=== PATIENT | male | born 1990 | race Native Hawaiian/Other Pacific Islander ===

== ENCOUNTER 2017-05-10 11:22 | Outpatient (CLI) | payer MEDICAID ==
--- NOTE | 2017-05-10 13:18 | XRAY Report ---
THREE-VIEW RIGHT FOOT: 05/10/2017 CLINICAL INDICATION: Joint pain. FINDINGS: AP, lateral, oblique views of the right foot demonstrate no evidence of fracture or disloc ation. The joint spaces are preserved. No radiopaque foreign body is seen in the soft tissues. IMPRESSION: NORMAL RIGHT FOOT. JOB #: [id number] EXT JOB #:[id number]
== END 2017-05-10 11:23 | disposition home or self-care (01) ==
LOC: DI.N 11:22
PROVIDERS: ATTEND Physician Assistant
DX: M79.671 Pain in right foot (principal)

== ENCOUNTER 2020-08-24 15:14 | Outpatient (CLI) | payer OTHER | END 2020-08-24 15:15 | disposition home or self-care (01) | LOC: COV 15:14 | PROVIDERS: ATTEND Family Medicine | DX: R50.9 Fever, unspecified (principal); M79.10 Myalgia, unspecified site; R53.83 Other fatigue; R07.0 Pain in throat; R19.7 Diarrhea, unspecified; R09.81 Nasal congestion; Z20.828 Contact with and (suspected) exposure to other viral communicable diseases ==

== ENCOUNTER 2020-11-29 16:23 | Outpatient (CLI) | payer OTHER | END 2020-11-29 16:24 | disposition home or self-care (01) | LOC: COV 16:23 | PROVIDERS: ATTEND Family Medicine | DX: R50.9 Fever, unspecified (principal); R05 Cough; R06.02 Shortness of breath; M79.10 Myalgia, unspecified site; R19.7 Diarrhea, unspecified; R11.2 Nausea with vomiting, unspecified; Z20.822 Contact with and (suspected) exposure to COVID-19 ==

== ENCOUNTER 2024-11-26 08:04 | Observation (INO) ==
--- NOTE | 2024-11-26 08:30 | ED Physician Documentation ---
PD HPI ABD PAIN Stated complaint Stated Complaint: RUQ PX/SWELLING,N/V Chief complaint Chief Complaint: Abd Pain History obtained from History obtained from: Patient History of Present Illness Timing - onset: How many days ago (3) Timing - duration: Days (3) Timing - details: Abrupt onset, Still present and Waxing and waning Pain level max: >10 Pain level now: 7 Quality: Cramping, Aching and Pain Location: RUQ and Epigastric Radiation: Right flank Improved by: Laying still Worsened by: Eating, Moving, Position (pain lying to right side.) and Palpation Associated symptoms: Nausea, Vomiting and Loss of appetite; No Fever or Diarrhea Recently seen: Not recently seen Meds/Allgy Home Medications Ambulatory Orders Medication Instructions Recorded Confirmed fexofenadine 180 mg tablet 180 mg PO QDAY 11/26/24 11/26/24 ([facility]) Allergies Allergies Allergy/AdvReac Type Severity Reaction Status Date / Time venom-honey bee Allergy Severe Anaphylaxis Verified 11/26/24 08:09 PFSH Active Problems All Active Problems (Updated 11/26/24 @ 13:15 by Zheng Tsang MD) Acute calculous cholecystitis (Acute) Abdominal pain, RUQ (Acute) Right upper quadrant abdominal pain (Acute) Acute streptococcal pharyngitis (Acute) Conjunctivitis of both eyes (Acute) Pneumonia (Acute) Contusion of right elbow (Acute) Chest wall contusion (Acute) Right clavicle fracture (Acute) Social History Social History (Updated 11/26/24 @ 07:27 by Joseph Major) Smoking Status: Current some day smoker Number of Years Smoked: 9 Do you dip or chew tobacco?: No Do you vape?: Yes Living arrangement: At home Relationship: Level: Independent Do you feel safe in your home environment?: Yes Suffered physical, verbal, emotional, or financial abuse?: No History of Abuse: No Frequency: Occasional POLST Patient has POLST: No Exam Constitutional normal general appearance, distress noted (severe) and average body habitus HENMT oral mucous membranes abnormal (dry) and oropharynx normal Lymph no lymphadenopathy noted Respiratory breath sounds equal bilaterally and normal respiratory effort Cardiovascular heart rate abnormal (tachycardic) and regular rhythm noted Gastrointestinal tender to palpation (severe) and (RUQ), tender to percussion, nondistended and abnormal bowel sounds noted (hypoactive bowel sounds) Neurology speech normal Psychiatry mental status grossly normal, oriented x3 and thought process normal Results Vitals Vitals: Vital Signs - 24 hr 11/26/24 08:09 11/26/24 08:25 11/26/24 08:28 Temperature 37.6 C Temperature Source Oral Pulse Rate 130 H Respiratory Rate 24 Blood Pressure 111/92 H O2 Saturation 96 O2 Source Room air Pain Intensity 7 10 10 11/26/24 08:41 11/26/24 08:55 11/26/24 09:01 Temperature Temperature Source Pulse Rate 112 H 97 Respiratory Rate 20 20 Blood Pressure 120/87 O2 Saturation 99 O2 Source Room air Pain Intensity 7 7 11/26/24 09:31 11/26/24 10:56 11/26/24 12:34 Temperature Temperature Source Pulse Rate 90 83 Respiratory Rate 16 12 Blood Pressure 104/61 107/73 O2 Saturation 98 98 O2 Source Room air Room air Pain Intensity 3 3 8 Oxygen O2 Source Room air Labs Labs: Laboratory Tests 11/26/24 08:24 WBC 22.1 H RBC 5.51 Hgb 15.8 Hct 46.8 MCV 84.9 MCH 28.7 MCHC 33.8 RDW 13.4 Plt Count 512 H MPV 9.6 Neut # (Auto) 17.3 H Lymph # (Auto) 2.3 [place] # (Auto) 1.9 H Eos # (Auto) 0.4 Baso # (Auto) 0.1 Absolute Nucleated RBC 0.00 Nucleated RBC % 0.0 Manual Slide Review Indicated RBC Morph Micro Appear 2+ ANISOCYTOSIS Sodium 135 Potassium 3.4 L Chloride 101 Carbon Dioxide 24 Anion Gap 10.0 BUN 14 Creatinine 1.1 Estimated GFR (MDRD) 78 L Glucose 137 H Calcium 9.4 Total Bilirubin 1.6 H AST 51 H ALT 70 H Alkaline Phosphatase 89 Total Protein 8.0 Albumin 4.4 Globulin 3.6 Albumin/Globulin Ratio 1.2 Lipase 33 Urine Color DARK YELLOW Urine Clarity CLEAR Urine pH 6.0 Ur Specific [place] 1.025 Urine Protein 30 H Urine Glucose (UA) NEGATIVE Urine Ketones 15 H Urine Occult Blood NEGATIVE Urine Nitrite NEGATIVE Urine Bilirubin MODERATE H Urine Urobilinogen >=8.0 H Ur Leukocyte Esterase NEGATIVE Urine RBC 0-5 Urine WBC 0-3 Ur Squamous Epith Cells RARE Squamous Urine Bacteria Few Ur Microscopic Review INDICATED Urine Culture Comments NOT INDICATED PD Medical Decision Making ED course Complexity details: reviewed results (RUQ abd US showing GB wall thickness and stones. CBD not dilated. Seems c/w cholecystitis. WBC very elevated. CT subsequently corroborated the finding. appendix normal. ), considered differential (Onset of pain 3 days ago with consistency since then and worsening in the last 12 hours. Nausea with vomiting the first day. Now just nausea. No diarrhea. Pain localized to right upper quadrant and markedly tender there. Seems concerning for cholecystitis.), d/w patient and d/w telecom sales consultant (Dr Gonzales, insulation sprayer, who was in OR case when first called and came to ED couple hours later when done. Saw pt and requested CT as well. ) Reviewed Lab Results: Pt given IV fluids and meds for pain and nausea. More confortable with that. However still very painful for direct exam, so with US nad surgical eval. Given repeat pain meds as needed. OR having other surgeries, so pt will be placed in OBS by Dr. Gonzales and he will do surgery in AM. ED course: At 12:10 PM, Dr. Gonzales did come to the ER to examine the patient. The patient exhibited tenderness right upper quadrant but Dr. Vu felt it unusual for his white count to be so elevated etc. He asked that a CT be performed noncontrast. We will do that. I will give the patient more pain medicine to as his pain was increased after the exam. Discharge Plan Discharge Patient Disposition: ED Place in Observation Condition: Stable Clinical Impression: Abdominal pain, RUQ, Acute calculous cholecystitis Interventions: ED Admission Assessment Last Done: 11/26/24 16:36
[2024-11-26 08:31] LABS: BASOPHILS # (AUTO) 0.1 10^3/uL (0.0-0.1); BASOPHILS % (AUTO) 0.3 %; EOSINOPHILS # (AUTO) 0.4 10^3/uL (0.0-0.7); EOSINOPHILS % (AUTO) 1.9 %; HCT - HEMATOCRIT 46.8 % (42.0-52.0); HGB - HEMOGLOBIN 15.8 g/dL (14.0-18.0); LYMPHOCYTES # (AUTO) 2.3 10^3/uL (1.5-3.5); LYMPHOCYTES % (AUTO) 10.5 %; MEAN CORPUSCULAR HEMOGLOBIN 28.7 pg (27.0-31.0); MEAN CORPUSCULAR HGB CONC 33.8 g/dL (32.0-36.0); MEAN CORPUSCULAR VOLUME 84.9 fL (80.0-94.0); MEAN PLATELET VOLUME 9.6 fL (7.4-11.4); MONOCYTES # (AUTO) 1.9 10^3/uL (0.0-1.0); MONOCYTES % (AUTO) 8.4 %; NEUTROPHILS # (AUTO) 17.3 10^3/uL (1.5-6.6); NEUTROPHILS % (AUTO) 78.1 %; PLT - PLATELET COUNT 512 10^3/uL (130-450); RED BLOOD COUNT 5.51 10^6/uL (4.70-6.10); RED CELL DISTRIBUTION WIDTH 13.4 % (12.0-15.0); WHITE BLOOD COUNT 22.1 x10^3/uL (4.8-10.8)
[2024-11-26 08:32] LABS: BILIRUBIN,URINE MODERATE (NEGATIVE); GLUCOSE, URINE (UA) NEGATIVE (NEGATIVE); KETONES,URINE (UA) 15 mg/dL (NEGATIVE); LEUKOCYTE ESTERASE, URINE NEGATIVE (NEGATIVE); NITRITE,URINE NEGATIVE (NEGATIVE); OCCULT BLOOD,URINE NEGATIVE (NEGATIVE); PROTEIN,URINE 30 mg/dL (NEGATIVE); UROBILINOGEN,URINE >=8.0 E.U./dL (NORMAL)
[2024-11-26 08:34] LABS: SLIDE REVIEW? Indicated
[2024-11-26 08:35] LABS: CLARITY,URINE CLEAR (CLEAR)
[2024-11-26 08:46] LABS: BACTERIA,URINE Few /HPF (None Seen); RBC,URINE 0-5 /HPF (0-5); SQUAMOUS EPITHELIAL CELL,UR RARE Squamous (<= Few); WBC,URINE 0-3 /HPF (0-3)
[2024-11-26 08:49] LABS: ALBUMIN 4.4 g/dL (3.2-5.5); ALBUMIN/GLOBULIN RATIO 1.2 (1.0-2.2); BILIRUBIN,TOTAL 1.6 mg/dL (0.2-1.0); CALCIUM 9.4 mg/dL (8.5-10.3); CREATININE 1.1 mg/dL (0.6-1.3); POTASSIUM 3.4 mmol/L (3.5-4.5)
[2024-11-26] MEDS: SODIUM CHLORIDE 0.9% 1,000 ML IV STA (08:49)
[2024-11-26] MEDS: ONDANSETRON 4 MG/2 ML VIAL IVP STA (08:54)
[2024-11-26] MEDS: HYDROmorphone 1 MG/ML SYRINGE IVP STA ×2 (08:54→12:35)
[2024-11-26] MEDS: FAMOTIDINE 20 MG/2 ML VIAL IVP STA (08:54)
[2024-11-26] MEDS: KETOROLAC 15 MG/ML VIAL IVP STA (08:55)
[2024-11-26 09:01] LABS: RBC MORPHOLOGY (MULTIPLE) 2+ ANISOCYTOSIS (NORMAL)
--- NOTE | 2024-11-26 10:06 | Ultrasound Report ---
PROCEDURE: US Abdomen Limited INDICATIONS: RUQ pain for 3 days TECHNIQUE: Real-time focused scanning was performed of the abdomen, with image documentation. COMPARISONS: None. FINDINGS: Liver measures 20 cm. Echogenic appearance. Cholelithiasis with mild wall thickening measuring 4 mm and focal tenderness. CBD measures 4 mm. Pancreas obscured by bowel gas. Right kidney measures 11 cm. IMPRESSION: Cholelithiasis with sonographic Randolph's sign suspicious for cholecystitis given provided history. Hepatomegaly. Echogenic liver is nonspecific, most commonly due to steatosis. Reviewed by: Jamir Cruz MD on 11/26/2024 10:05 AM PDT Approved by: Jamir Cruz MD on 11/26/2024 10:05 AM PDT Station ID: [id number]
[2024-11-26] MEDS: AMPICILLIN/SULBACTAM 3 GM in SODIUM CHLORIDE 0.9% MINIBAG 100 ML IV STA (10:22)
[2024-11-26] MEDS: LACTATED RINGERS 1,000 ML IV STA (10:39)
--- NOTE | 2024-11-26 13:08 | CT Report ---
PROCEDURE: CT Abdomen/Pelvis WO INDICATIONS: RUQ pain and tender TECHNIQUE: A CT scan of the abdomen and pelvis was performed without the use of intravenous contrast. Images we re recorded and evaluated at appropriate window settings. Reformats: coronal and sagittal. For radiat ion dose reduction, the following was used: automated exposure control, adjustment of mA and/or kV ac cording to patient size. COMPARISON: Ultrasound examination of right upper quadrant from the same day. FINDINGS: Image quality: Diagnostic. Lower chest: Small amount of right pleural effusion. Mild bibasilar dependent atelectasis and scarrin g is seen. Heart size is normal, no pericardial effusion. Small hiatal hernia. Liver: No contour-deforming mass. Moderate hepatic steatosis. Gallbladder: There is no radiopaque gallstone. Gallbladder wall thickening and pericholecystic inflam matory changes are noted. Biliary tree: No intrahepatic or extrahepatic dilation, accounting for age. Spleen: No splenomegaly. Pancreas: No pancreatic ductal dilation. Adrenals: No adrenal nodule. Kidneys and ureters: No hydronephrosis. No contour-deforming mass. Stomach, bowel and peritoneum: There is wall thickening involving ascending colon and proximal transv erse colon adjacent to gallbladder fossa. No evidence of acute appendicitis or diverticulitis. No abs cess collection. No free fluid of free air. Lymph nodes: No central or retroperitoneal adenopathy. Vessels: No infrarenal aortic aneurysm. Reproductive organs: Unremarkable. Bladder: Bladder wall thickness is normal, accounting for underdistention. No calcified bladder stone s. Pelvic lymph nodes: No adenopathy by size criteria. Bones: No aggressive osseous abnormality. Other: No significant ventral or inguinal hernia. IMPRESSION: 1. Gallbladder wall thickening and pericholecystic inflammatory changes concerning for acute cholecys titis. This is concordant with right upper quadrant ultrasound finding. No radiopaque gallstones are seen. 2. Inflammatory changes involving hepatic flexure and proximal sigmoid colon which may represent reac tive inflammatory changes from adjacent gallbladder. Superimposed infectious or inflammatory colitis cannot be entirely excluded. No evidence of acute appendicitis or diverticulitis. No free fluid of fr ee air. No bowel obstruction. 3. Small right pleural effusion. Bibasilar atelectasis. 4. Moderate hepatic steatosis. Reviewed by: Rico Sands MD on 11/26/2024 1:07 PM PDT Approved by: Rico Sands MD on 11/26/2024 1:07 PM PDT Station ID: [id number]
[2024-11-26] MEDS ORDERED: ZOLPIDEM 5 MG TABLET PO PRN (15:52)
[2024-11-26] MEDS ORDERED: ACETAMINOPHEN 325 MG TABLET PO PRN (15:52)
[2024-11-26] MEDS ORDERED: ONDANSETRON ODT 4 MG TABLET TL PRN (15:52)
[2024-11-26] MEDS ORDERED: ONDANSETRON 4 MG/2 ML VIAL IVP PRN (15:52)
[2024-11-26] MEDS ORDERED: oxyCODONE 5 MG TABLET PO PRN (15:52)
--- NOTE | 2024-11-26 15:52 | CONSULTATION NOTE ---
Chief Complaint Chief Complaint Chief Complaint: mid right abdominal pain x 4 days. not improving. History of Present Illness History Obtained From Records Reviewed: yes History obtained from: pt Exam Limitations: none History of Present Illness HPI Comment/Other: mid right abdominal pain x 4 days. painful with movement. no prior similar symptoms. us gallstones and minimal gb wall thickening. lfts mildly elevated. ct scan confirms acute cholecystitis with significantly swollen gallbladder and surrounding inflammation Meds/Allgy Home Medications Ambulatory Orders Medication Instructions Recorded Confirmed fexofenadine 180 mg tablet 180 mg PO QDAY 11/26/24 11/26/24 ([facility]) Allergies Allergies Allergy/AdvReac Type Severity Reaction Status Date / Time venom-honey bee Allergy Severe Anaphylaxis Verified 11/26/24 08:09 PFSH Active Problems All Active Problems (Updated 11/26/24 @ 13:15 by Zheng Tsang MD) Acute calculous cholecystitis (Acute) Abdominal pain, RUQ (Acute) Right upper quadrant abdominal pain (Acute) Acute streptococcal pharyngitis (Acute) Conjunctivitis of both eyes (Acute) Pneumonia (Acute) Contusion of right elbow (Acute) Chest wall contusion (Acute) Right clavicle fracture (Acute) Social History Social History (Updated 11/26/24 @ 07:27 by Joseph Major) Smoking Status: Current every day smoker Number of Years Smoked: 9 Do you vape?: Yes Living arrangement: At home Relationship: Do you feel safe in your home environment?: Yes Suffered physical, verbal, emotional, or financial abuse?: No History of Abuse: No Frequency: Occasional POLST Patient has POLST: No Results Lab Results 11/26/24 08:24 11/26/24 08:24 Other Lab Results: Lab Results x24hrs 11/26/24 Range/Units 08:24 WBC 22.1 H (4.8-10.8) x10^3/uL RBC 5.51 (4.70-6.10) 10^6/uL Hgb 15.8 (14.0-18.0) g/dL Hct 46.8 (42.0-52.0) % MCV 84.9 (80.0-94.0) fL MCH 28.7 (27.0-31.0) pg MCHC 33.8 (32.0-36.0) g/dL RDW 13.4 (12.0-15.0) % Plt Count 512 H (130-450) 10^3/uL MPV 9.6 (7.4-11.4) fL Neut # (Auto) 17.3 H (1.5-6.6) 10^3/uL Lymph # (Auto) 2.3 (1.5-3.5) 10^3/uL [place] # (Auto) 1.9 H (0.0-1.0) 10^3/uL Eos # (Auto) 0.4 (0.0-0.7) 10^3/uL Baso # (Auto) 0.1 (0.0-0.1) 10^3/uL Absolute Nucleated RBC 0.00 x10^3/uL Nucleated RBC % 0.0 /100WBC Manual Slide Review Indicated RBC Morph Micro Appear 2+ ANISOCYTOSIS (NORMAL) Sodium 135 (135-145) mmol/L Potassium 3.4 L (3.5-4.5) mmol/L Chloride 101 (101-111) mmol/L Carbon Dioxide 24 (21-32) mmol/L Anion Gap 10.0 (6-13) BUN 14 (6-20) mg/dL Creatinine 1.1 (0.6-1.3) mg/dL Estimated GFR (MDRD) 78 L (>89) Glucose 137 H (74-104) mg/dL Calcium 9.4 (8.5-10.3) mg/dL Total Bilirubin 1.6 H (0.2-1.0) mg/dL AST 51 H (10-42) IU/L ALT 70 H (10-60) IU/L Alkaline Phosphatase 89 (42-121) IU/L Total Protein 8.0 (6.4-8.9) g/dL Albumin 4.4 (3.2-5.5) g/dL Globulin 3.6 (2.1-4.2) g/dL Albumin/Globulin Ratio 1.2 (1.0-2.2) Lipase 33 (11-82) U/L Urine Color DARK YELLOW Urine Clarity CLEAR (CLEAR) Urine pH 6.0 (5.0-7.5) PH Ur Specific [place] 1.025 (1.002-1.030) Urine Protein 30 H (NEGATIVE) mg/dL Urine Glucose (UA) NEGATIVE (NEGATIVE) mg/dL Urine Ketones 15 H (NEGATIVE) mg/dL Urine Occult Blood NEGATIVE (NEGATIVE) Urine Nitrite NEGATIVE (NEGATIVE) Urine Bilirubin MODERATE H (NEGATIVE) Urine Urobilinogen >=8.0 H (NORMAL) E.U./dL Ur Leukocyte Esterase NEGATIVE (NEGATIVE) Urine RBC 0-5 (0-5) /HPF Urine WBC 0-3 (0-3) /HPF Ur Squamous Epith Cells RARE Squamous (<= Few) Urine Bacteria Few (None Seen) /HPF Ur Microscopic Review INDICATED Urine Culture Comments NOT INDICATED Review of Systems Status of ROS: 10 or more systems reviewed and unremarkable except as noted in history and below Exam Constitutional normal general appearance and no apparent distress HENMT normocephalic and head/scalp atraumatic Eyes PERRL, EOMs intact bilaterally and no scleral icterus Neck/C-Spine trachea midline Respiratory normal respiratory effort Cardiovascular normal heart rate noted and regular rhythm noted Gastrointestinal mid right abdominal pain and right upper quadrant pain with guarding Neurology GCS 15 Psychiatry oriented x3, thought process normal, cooperative and memory normal Conclusion/Plan Problem List (1) Acute calculous cholecystitis: Plan: surgery. lap gregg. parq held and verbal consent obtained. Plan admit once a bed is available and surgery after a bed is available for certain. likely a bed will be available this evening and plan surgery tomorrow. lap gregg with cholangiogram. Lab Results 11/26/24 08:24 11/26/24 08:24
[2024-11-26] MEDS: D5.45NS W/20 MEQ KCL 1,000 ML IV SCH (16:21)
[2024-11-26] MEDS: PIPERACILLIN/TAZOBACTAM 3.375 GM in SODIUM CHLORIDE 0.9% MINIBAG 100 ML IV SCH (17:59)
[2024-11-26] MEDS: SODIUM CHLORIDE FLUSH 0.9% 10 ML SYRINGE IVP SCH (17:59)
[2024-11-26] MEDS: FAMOTIDINE 20 MG/2 ML VIAL IVP SCH (21:36)
[2024-11-26] MEDS: SODIUM CHLORIDE FLUSH 0.9% 10 ML SYRINGE IVP PRN (21:36)
[2024-11-27] MEDS: HYDROmorphone 0.5 MG/0.5 ML SYRINGE IVP PRN
[2024-11-27 08:33] LABS: BASOPHILS # (AUTO) 0.1 10^3/uL (0.0-0.1); BASOPHILS % (AUTO) 0.3 %; EOSINOPHILS # (AUTO) 0.5 10^3/uL (0.0-0.7); EOSINOPHILS % (AUTO) 3.5 %; HCT - HEMATOCRIT 41.1 % (42.0-52.0); HGB - HEMOGLOBIN 13.3 g/dL (14.0-18.0); LYMPHOCYTES # (AUTO) 2.4 10^3/uL (1.5-3.5); LYMPHOCYTES % (AUTO) 15.5 %; MEAN CORPUSCULAR HEMOGLOBIN 28.3 pg (27.0-31.0); MEAN CORPUSCULAR HGB CONC 32.4 g/dL (32.0-36.0); MEAN CORPUSCULAR VOLUME 87.4 fL (80.0-94.0); MEAN PLATELET VOLUME 9.6 fL (7.4-11.4); MONOCYTES # (AUTO) 1.5 10^3/uL (0.0-1.0); MONOCYTES % (AUTO) 9.6 %; NEUTROPHILS # (AUTO) 10.7 10^3/uL (1.5-6.6); NEUTROPHILS % (AUTO) 70.4 %; PLT - PLATELET COUNT 352 10^3/uL (130-450); RED CELL DISTRIBUTION WIDTH 13.6 % (12.0-15.0); WHITE BLOOD COUNT 15.3 x10^3/uL (4.8-10.8)
[2024-11-27 08:47] LABS: ALBUMIN 3.4 g/dL (3.2-5.5); ALBUMIN/GLOBULIN RATIO 1.2 (1.0-2.2); BILIRUBIN,TOTAL 1.6 mg/dL (0.2-1.0); CALCIUM 8.4 mg/dL (8.5-10.3); CREATININE 0.8 mg/dL (0.6-1.3); POTASSIUM 3.7 mmol/L (3.5-4.5); TOTAL PROTEIN 6.2 g/dL (6.4-8.9)
[2024-11-27] MEDS ORDERED: BUPIVACAINE 0.25% PF 10 ML VIAL ONE (09:35)
[2024-11-27] MEDS ORDERED: LIDOCAINE 1%-EPI 1:100000 20 ML MDV ONE (09:35)
[2024-11-27] MEDS ORDERED: PROPOFOL 200 MG/20 ML VIAL IVP ONE (09:41)
[2024-11-27] MEDS ORDERED: MIDAZOLAM 2 MG/2 ML VIAL ONE (09:41)
[2024-11-27] MEDS ORDERED: LIDOCAINE-PF 2% 10 ML AMP SUBQ ONE (09:41)
[2024-11-27] MEDS ORDERED: fentaNYL 100 MCG/2 ML VIAL ONE ×3 (09:41→13:15)
[2024-11-27] MEDS ORDERED: ROCURONIUM 50 MG/5 ML VIAL ONE ×3 (09:41→12:33)
--- NOTE | 2024-11-27 09:48 | HISTORY & PHYSICAL EXAMINATION ---
History of Present Illness History of Present Illness HPI Comment/Other: 34M admitted overnight after bed became available, with acute cholecystitis and sepsis. Initial HR 140s, improved after 2L IVF + unasyn in the ED. O/n remained HD normal/AF, on zosyn. WBC 22 down to 15 today, Cr improved 1.1 to 0.8. His Tb is stable at 1.6, transaminases <100 and downtrending. US/CT c/w acute cholecystitis and CT shows reactive right pleural effusion as well as prominent inflammation involving hepatic flexure, suggesting significant reaction around the acute cholecystitis. CBD was normal (4mm) on US and tb not rising, so will not obtain MRCP. He endorses chronic epigastric pain that he attributed to GERD and IBS (takes OTC antacids and imodium prn), but in hindsight is similar/more mild sx of what he has now. Episodes would come on strongly in the middle of the night, never associated with n/v until this time. Current sx started 4d ago. Abdominal pain is improved with iv pain meds and abx since admission, but comes back just as strong when pain meds wear off. Meds/Allgy Home Medications Ambulatory Orders Medication Instructions Recorded Confirmed fexofenadine 180 mg tablet 180 mg PO QDAY 11/26/24 11/26/24 ([facility]) Allergies Allergies Allergy/AdvReac Type Severity Reaction Status Date / Time venom-honey bee Allergy Severe Anaphylaxis Verified 11/26/24 08:09 PFSH Active Problems All Active Problems (Updated 11/27/24 @ 10:12 by Chasidy Smith DO) Sepsis (Acute) Acute calculous cholecystitis (Acute) Abdominal pain, RUQ (Acute) Medical History Medical History (Updated 11/27/24 @ 10:12 by Chasidy Smith DO) Seasonal allergic rhinitis Chronic heartburn IBS (irritable bowel syndrome) Surgical History Surgical History (Updated 11/27/24 @ 10:09 by Chasidy Smith DO) History of wisdom tooth extraction History of tonsillectomy Social History Social History (Updated 11/26/24 @ 07:27 by Joseph Major) Smoking Status: Current some day smoker Number of Years Smoked: 9 Do you dip or chew tobacco?: No Do you vape?: Yes Living arrangement: At home Relationship: Level: Independent Do you feel safe in your home environment?: Yes Suffered physical, verbal, emotional, or financial abuse?: No History of Abuse: No Frequency: Occasional POLST Patient has POLST: No Review of Systems Status of ROS: 10 or more systems reviewed and unremarkable except as noted in history and below Exam Constitutional normal general appearance and no apparent distress HENMT normocephalic Eyes PERRL, EOMs intact bilaterally and normal visual christy by confrontation Neck/C-Spine visual inspection normal Lymph no lymphadenopathy noted Respiratory normal respiratory effort Cardiovascular normal heart rate noted Gastrointestinal abdomen soft to palpation and nondistended ruq ttp + murpheys Extremities normal to inspection Neurology no movement abnormality noted Psychiatry mental status grossly normal and oriented x3 Skin skin color normal Conclusion/Plan Problem List (1) Acute calculous cholecystitis: (2) Sepsis: Plan 34M with acute cholecystitis and sepsis with initial HR 140s and WBC 22 - both markers improved with IVF resusitation and abx. 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 Discussed nature of diagnosis and indication for cholecystectomy. Discussed laparoscopic cholecystectomy along with risks and alternatives. Risks of pain, bleeding, infection, bile leak, duct injury, retained stone, and need for further procedures. He understands and agrees to proceed. - Continue zosyn - to OR for lap gregg, possible IOC - plan for same day discharge - will discuss trial of meds for heartburn at postop visit, pending sx after surgery Chasidy Smith DO, FACS General Surgeon, [facility] Lab Results 11/27/24 08:17 11/27/24 08:17 Diagnostic Imaging Results Diagnostic Imaging Results: positive Read contemporaneously Diagnostic Imaging Results Comments: PROCEDURE: US Abdomen Limited INDICATIONS: RUQ pain for 3 days TECHNIQUE: Real-time focused scanning was performed of the abdomen, with image documentation. COMPARISONS: None. FINDINGS: Liver measures 20 cm. Echogenic appearance. Cholelithiasis with mild wall thickening measuring 4 mm and focal tenderness. CBD measures 4 mm. Pancreas obscured by bowel gas. Right kidney measures 11 cm. IMPRESSION: Cholelithiasis with sonographic Randolph's sign suspicious for cholecystitis given provided history. Hepatomegaly. Echogenic liver is nonspecific, most commonly due to steatosis. Reviewed by: Jamir Cruz MD on 11/26/2024 10:05 AM PDT PROCEDURE: CT Abdomen/Pelvis WO INDICATIONS: RUQ pain and tender TECHNIQUE: A CT scan of the abdomen and pelvis was performed without the use of intravenous contrast. Images were recorded and evaluated at appropriate window settings. Reformats: coronal and sagittal. For radiation dose reduction, the following was used: automated exposure control, adjustment of mA and/or kV according to patient size. COMPARISON: Ultrasound examination of right upper quadrant from the same day. FINDINGS: Image quality: Diagnostic. Lower chest: Small amount of right pleural effusion. Mild bibasilar dependent atelectasis and scarring is seen. Heart size is normal, no pericardial effusion. Small hiatal hernia. Liver: No contour-deforming mass. Moderate hepatic steatosis. Gallbladder: There is no radiopaque gallstone. Gallbladder wall thickening and pericholecystic inflammatory changes are noted. Biliary tree: No intrahepatic or extrahepatic dilation, accounting for age. Spleen: No splenomegaly. Pancreas: No pancreatic ductal dilation. Adrenals: No adrenal nodule. Kidneys and ureters: No hydronephrosis. No contour-deforming mass. Stomach, bowel and peritoneum: There is wall thickening involving ascending colon and proximal transverse colon adjacent to gallbladder fossa. No evidence of acute appendicitis or diverticulitis. No abscess collection. No free fluid of free air. Lymph nodes: No central or retroperitoneal adenopathy. Vessels: No infrarenal aortic aneurysm. Reproductive organs: Unremarkable. Bladder: Bladder wall thickness is normal, accounting for underdistention. No calcified bladder stones. Pelvic lymph nodes: No adenopathy by size criteria. Bones: No aggressive osseous abnormality. Other: No significant ventral or inguinal hernia. IMPRESSION: 1. Gallbladder wall thickening and pericholecystic inflammatory changes concerning for acute cholecystitis. This is concordant with right upper quadrant ultrasound finding. No radiopaque gallstones are seen. 2. Inflammatory changes involving hepatic flexure and proximal sigmoid colon which may represent reactive inflammatory changes from adjacent gallbladder. Superimposed infectious or inflammatory colitis cannot be entirely excluded. No evidence of acute appendicitis or diverticulitis. No free fluid of free air. No bowel obstruction. 3. Small right pleural effusion. Bibasilar atelectasis. 4. Moderate hepatic steatosis. Reviewed by: Rico Sands MD on 11/26/2024 1:07 PM PDT
[2024-11-27] MEDS ORDERED: iohexoL-240 20 ML VIAL IVP ONE ×2 (09:56→12:37)
--- NOTE | 2024-11-27 10:23 | ANESTHESIA PROCEDURE NOTE ---
Pre-Anesthesia VS, & Labs Diagnosis Surgical Diagnosis:: actute cholecystitis Procedure Procedure: lap gregg Vitals Vital Signs: Temp Pulse Resp BP Pulse Ox 37.5 C 92 20 105/76 97 11/27/24 08:18 11/27/24 08:18 11/27/24 08:18 11/27/24 08:18 11/27/24 08:18 NPO NPO: >8 hours Lab Results Current Lab Results: Laboratory Tests 11/27/24 08:17: WBC 15.3 H, RBC 4.70, Hgb 13.3 L, Hct 41.1 L, MCV 87.4, MCH 28.3, MCHC 32.4, RDW 13.6, Plt Count 352, MPV 9.6, Neut # (Auto) 10.7 H, Lymph # (Auto) 2.4, Barbour # (Auto) 1.5 H, Eos # (Auto) 0.5, Baso # (Auto) 0.1, Absolute Nucleated RBC 0.00, Nucleated RBC % 0.0, Sodium 136, Potassium 3.7, Chloride 103, Carbon Dioxide 25, Anion Gap 8.0, BUN 6, Creatinine 0.8, Estimated GFR (MDRD) 112, Glucose 108 H, Calcium 8.4 L, Total Bilirubin 1.6 H, AST 27, ALT 52, Alkaline Phosphatase 78, Total Protein 6.2 L, Albumin 3.4, Globulin 2.8, Albumin/Globulin Ratio 1.2 11/26/24 08:24: WBC 22.1 H, RBC 5.51, Hgb 15.8, Hct 46.8, MCV 84.9, MCH 28.7, MCHC 33.8, RDW 13.4, Plt Count 512 H, MPV 9.6, Neut # (Auto) 17.3 H, Lymph # (Auto) 2.3, Barbour # (Auto) 1.9 H, Eos # (Auto) 0.4, Baso # (Auto) 0.1, Absolute Nucleated RBC 0.00, Nucleated RBC % 0.0, Manual Slide Review Indicated, RBC Morph Micro Appear 2+ ANISOCYTOSIS, Sodium 135, Potassium 3.4 L, Chloride 101, Carbon Dioxide 24, Anion Gap 10.0, BUN 14, Creatinine 1.1, Estimated GFR (MDRD) 78 L, Glucose 137 H, Calcium 9.4, Total Bilirubin 1.6 H, AST 51 H, ALT 70 H, Alkaline Phosphatase 89, Total Protein 8.0, Albumin 4.4, Globulin 3.6, Albumin/Globulin Ratio 1.2, Lipase 33 11/27/24 08:17 11/27/24 08:17 Meds/Allgy Home Medications Ambulatory Orders Medication Instructions Recorded Confirmed fexofenadine 180 mg tablet 180 mg PO QDAY 11/26/24 11/26/24 ([facility]) Allergies Allergies Allergy/AdvReac Type Severity Reaction Status Date / Time venom-honey bee Allergy Severe Anaphylaxis Verified 11/26/24 08:09 [facility] Active Problems All Active Problems (Updated 11/27/24 @ 10:12 by Chasidy Smith DO) Sepsis (Acute) Acute calculous cholecystitis (Acute) Abdominal pain, RUQ (Acute) Medical History Medical History (Updated 11/27/24 @ 10:12 by Chasidy Smith DO) Seasonal allergic rhinitis Chronic heartburn IBS (irritable bowel syndrome) Surgical History Surgical History (Updated 11/27/24 @ 10:09 by Chasidy Smith DO) History of wisdom tooth extraction History of tonsillectomy Social History Social History (Updated 11/26/24 @ 07:27 by Joseph Major) Smoking Status: Current some day smoker Number of Years Smoked: 9 Do you dip or chew tobacco?: No Do you vape?: Yes Living arrangement: At home Relationship: Level: Independent Do you feel safe in your home environment?: Yes Suffered physical, verbal, emotional, or financial abuse?: No History of Abuse: No Frequency: Occasional POLST Patient has POLST: No POLST Status: Full Code Anesthesia Exam (Expanded) Exam General: Alert, Oriented x3 and Cooperative Dental: Poor dentition Mouth Opening: Greater than 4 Fingerbreadths Neck Mobility: Normal Mallampati classification: I Thyromental Distance: 4-6 cm Respiratory: Lungs clear Cardiovascular: Regular rate Plan Problem List (1) Acute calculous cholecystitis: (2) Sepsis: Plan 34M with acute cholecystitis and sepsis with initial HR 140s and WBC 22 - both markers improved with IVF resusitation and abx. 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 Discussed nature of diagnosis and indication for cholecystectomy. Discussed laparoscopic cholecystectomy along with risks and alternatives. Risks of pain, bleeding, infection, bile leak, duct injury, retained stone, and need for further procedures. He understands and agrees to proceed. - Continue zosyn - to OR for lap gregg, possible IOC - plan for same day discharge - will discuss trial of meds for heartburn at postop visit, pending sx after surgery Chasidy Smith DO, FACS General Surgeon, [facility] Plan Anesthesia Type: General Consent for Procedure(s) Verified and Reviewed: Yes Code Status: Attempt Resuscitation ASA Classification ASA classification: 2-Mild systemic disease Is this case an emergency?: No
[2024-11-27] MEDS ORDERED: DEXAMETHASONE 4 MG/ML VIAL ONE (10:39)
[2024-11-27] MEDS ORDERED: ONDANSETRON 4 MG/2 ML VIAL ONE (10:39)
[2024-11-27] MEDS ORDERED: HYDROmorphone 1 MG/ML SYRINGE ONE (11:35)
[2024-11-27] MEDS ORDERED: METOCLOPRAMIDE 10 MG/2 ML VIAL IVP PRN (12:20)
[2024-11-27] MEDS ORDERED: HYDROmorphone 0.5 MG/0.5 ML SYRINGE IVP PRN ×2 (12:20→14:41)
[2024-11-27] MEDS ORDERED: ePHEDrine 50 MG/ML VIAL IVP PRN (12:20)
[2024-11-27] MEDS ORDERED: fentaNYL 100 MCG/2 ML VIAL IVP PRN (12:20)
[2024-11-27] MEDS ORDERED: ATROPINE ABBOJECT 1 MG/10 ML SYRINGE IVP PRN (12:20)
[2024-11-27] MEDS ORDERED: MORPHINE 2 MG/ML CARPUJECT IVP PRN (12:20)
[2024-11-27] MEDS ORDERED: NALOXONE 0.4 MG/ML VIAL IVP PRN (12:20)
[2024-11-27] MEDS ORDERED: ONDANSETRON 4 MG/2 ML VIAL IVP PRN (12:20)
[2024-11-27] MEDS ORDERED: SUGAMMADEX 200 MG/2 ML VIAL IVP ONE (13:23)
--- NOTE | 2024-11-27 14:08 | OPERATIVE REPORT ---
Operative Report General Admit Date: 11/26/24 Procedure Data: Operation Date: 11/27/24 10:15 Proposed Procedures p Laparoscopic Cholecystectomy(Not Applicable) - Chasidy Smith DO Actual Procedures p Laparoscopic Cholecystectomy(Not Applicable) Intraoperative cholangiogram - Chasidy Smith DO Pre-Op Diagnosis: CHOLECYSTITIS Anesthesia Type General Case Staff Anesthesia Provider: Lolita Alba Anesthesia Provider: Judy Lara Case Times Into Recovery: 11/27/24 13:54 Procedure Start: 11/27/24 10:52 Time out: 11/27/24 10:51 Pre-Op Diagnosis: acute cholecystitis Post Op Diagnosis: acute gangrenous cholecystitis Procedure Note Intake, IV Amount (ml): 2,200 Estimated Blood Loss (ml): 75 Pathology: gallbladder Indications: 34M with acute cholecystitis, pain x4d with years of similar pain, WBC 22, HR 140, Tb 1.6. Findings: Tensely distended, necrotic gallbladder with neon-green gangrenous fundus. Black purulent bile aspirated. Severely thickened rind around gallbladder wall. Dense omentum and transverse colon adherent to gallbladder and liver. Intraoperative cholangiogram negative for choledocholithiasis. Cystic duct stump ligated with 0 PDS endoloop. Complications: none Other Other Information/Narrative: The patient was brought to the operating room under universal protocol. They were placed supine on the operating room table. General anesthesia was induced by the FASTENER SEWING MACHINE OPERATOR. No Roman was placed. Both arms were tucked. A final timeout was performed with all members of the team in agreement. The abdomen was prepped and draped in standard sterile fashion. The abdomen was entered via Abdi technique at the supraumbilical position. Local anesthetic was injected and the skin was incised sharply. The subcutaneous tissues were dissected bluntly down to the level of the fascia, and a Tonny clamp was used to elevate the umbilicus. The fascia was incised vertically sharply. The peritoneal cavity was entered bluntly with a Chrissy forcep a blunt trocar was placed. The abdomen was insufflated to 15 mmHg with CO2 gas which the patient tolerated well. The laparoscope was introduced, no entry trauma was indentified, and under direct visualization 3 additional 5 mm trocars were placed in the following positions: Subxiphoid, the subcostal margin along the right midclavicular line, and far lateral right upper quadrant at the subcostal margin. Patient was positioned with the head up in the right side elevated and graspers were introduced into the abdomen. The gallbladder was not visible secondary to being covered with omentum and transverse colon adherent to the gallbladder and liver. These were taken down using blunt dissection and electrocautery. The omentum was inflamed with ble eding edges; cautery and surgiflo were used for hemostasis. The gallbladder was seen to be tensely distended with gangrenous inflammation. The wall was severely thickened. At all points of the dissection the inflamed tissues were bleeding. The fundus was grasped and elevated cephalad over the liver edge. The infundibulum was grasped and retracted laterally. Hook electrocautery was used to incise the peritoneum over the medial and lateral edge of the gallbladder. Blunt dissection was used to clear the fat and connective tissue from the lower half of the gallbladder, exposing the cystic triangle. 2 structures were seen entering the lower third of the gallbladder with the liver edge seen between these 2 structures representing the critical view of safety. The cystic artery was triply clipped and divided sharply between the clips. The cystic duct was clipped toward the gallbladder, and a partial cystic ductotomy was made for a cholangiogram. The ureteral catheter was placed through the lemus clamp and introduced easily into the cystic duct, around which the lemus clamp was closed. Saline flushed easily through the ureteral catheter without backflow or leaking from the duct. The C arm was then brought in a omnipaque was flushed through the catheter under live fluoroscopy for a cholangriogram. The contrast passed easily into the hepatic radicals and duodenum; there was no choledocholithiasis observed, the anatomy appeared normal, and the lemus clamp was on the cystic duct. The cholangiogram equipment was removed. The cystic duct was transected the rest of the way, and ligated with an 0 PDS endoloop. The gallbladder was taken off of the liver bed using hook electrocautery. Bleeding on the hepatic fossa was controlled with hook electrocautery. The gallbladder was placed into an Endo Catch retrieval bag and removed through the umbilical port. The abdomen was irrigated and suctioned until irrigant returned clear. The clips and endoloop were noted to be in place. More surgiflo was used for hemostasis within the fossa. The trocars were removed. The patient was positioned flat. The fascia at the umbilical incision was closed with an 0 Vicryl [id number] suture x3 and the umbilical wound was irrigated with clean normal saline. The remainder of the local anesthetic was injected at all incision sites. The skin at all incisions was closed with a subcuticular 4-0 Monocryl suture followed by dressing application. The patient was then awoken from general anesthesia having tolerated the procedure well. They were transferred to the PACU in good condition. All sponge and needle counts were correct. Chasidy Smith DO, [facility] General Surgeon, Josephine
[2024-11-27] MEDS ORDERED: KETOROLAC 15 MG/ML VIAL ONE (14:16)
[2024-11-27] MEDS: KETOROLAC 15 MG/ML VIAL IVP STA (14:17)
--- NOTE | 2024-11-27 14:23 | Discharge Summary ---
Discharge Summary Admit Date: 11/26/24 Discharge Date: 11/27/24 Discharging Provider: Chasidy Smith DO Code Status: Attempt Resuscitation DIAGNOSES Admission Diagnoses: acute cholecystitis sepsis Discharge Diagnoses with Status of Each Condition: acute gangrenous cholecystitis - resolved sepsis - resolved HPI History of Present Illness: 34M admitted overnight after bed became available, with acute cholecystitis and sepsis. Initial HR 140s, improved after 2L IVF + unasyn in the ED. O/n remained HD normal/AF, on zosyn. WBC 22 down to 15 today, Cr improved 1.1 to 0.8. His Tb is stable at 1.6, transaminases <100 and downtrending. US/CT c/w acute cholecystitis and CT shows reactive right pleural effusion as well as prominent inflammation involving hepatic flexure, suggesting significant reaction around the acute cholecystitis. CBD was normal (4mm) on US and tb not rising, so will not obtain MRCP. He endorses chronic epigastric pain that he attributed to GERD and IBS (takes OTC antacids and imodium prn), but in hindsight is similar/more mild sx of what he has now. Episodes would come on strongly in the middle of the night, never associated with n/v until this time. Current sx started 4d ago. Abdominal pain is improved with iv pain meds and abx since admission, but comes back just as strong when pain meds wear off. CONSULTS | PROCEDURES Procedures: laparoscopic cholecystectomy, intraoperative cholangiogram (11/27/24) HOSPITAL COURSE Hospital Course: The patient was admitted with acute cholecystitis, and placed on zosyn with pain control. When an operating room became available, he underwent laparoscopic cholecystectomy with a negative intraoperative cholangiogram. He was recovered according to standard postoperative protocol, and was discharged to home when meeting discharge criteria. ALLERGIES Allergies Allergy/AdvReac Type Severity Reaction Status Date / Time venom-honey bee Allergy Severe Anaphylaxis Verified 11/26/24 08:09 MEDICATIONS Ambulatory Orders Medication Instructions Recorded Confirmed fexofenadine 180 mg tablet 180 mg PO QDAY 11/26/24 11/26/24 ([facility]) acetaminophen 500 mg tablet 1,000 mg (2 x 500 mg) PO Q8HR 11/27/24 post-op pain #120 tabs gabapentin 300 mg capsule 300 mg PO TID PRN postoperative 11/27/24 pain #90 caps ibuprofen 800 mg tablet 800 mg PO Q8H post-op pain #60 11/27/24 tabs oxycodone 5 mg tablet 5 mg PO Q4H PRN breakthrough pain 11/27/24 #10 tabs polyethylene glycol 3350 17 17 g PO DAILY #238 grams 11/27/24 gram/dose oral powder PHYSICAL EXAM AT DISCHARGE General Appearance: positive No acute distress Eyes Bilateral: positive Normal inspection ENT: positive ENT inspection nml Neck: positive Nml inspection Respiratory: positive No respiratory distress and Breath sounds nml Cardiovascular: positive Regular rate & rhythm Peripheral Pulses: positive 2+ Abdomen: positive Other (appropriate periincisional ttp) Skin: positive Color nml Extremities: positive Non-tender Neurologic/Psychiatric: positive Oriented x3 LABS 11/27/24 08:17 11/27/24 08:17 DIAGNOSTIC IMAGING Diagnostic Imaging Results Comments: PROCEDURE: US Abdomen Limited INDICATIONS: RUQ pain for 3 days TECHNIQUE: Real-time focused scanning was performed of the abdomen, with image documentation. COMPARISONS: None. FINDINGS: Liver measures 20 cm. Echogenic appearance. Cholelithiasis with mild wall thickening measuring 4 mm and focal tenderness. CBD measures 4 mm. Pancreas obscured by bowel gas. Right kidney measures 11 cm. IMPRESSION: Cholelithiasis with sonographic Randolph's sign suspicious for cholecystitis given provided history. Hepatomegaly. Echogenic liver is nonspecific, most commonly due to steatosis. Reviewed by: Jamir Cruz MD on 11/26/2024 10:05 AM PDT PROCEDURE: CT Abdomen/Pelvis WO INDICATIONS: RUQ pain and tender TECHNIQUE: A CT scan of the abdomen and pelvis was performed without the use of intravenous contrast. Images were recorded and evaluated at appropriate window settings. Reformats: coronal and sagittal. For radiation dose reduction, the following was used: automated exposure control, adjustment of mA and/or kV according to patient size. COMPARISON: Ultrasound examination of right upper quadrant from the same day. FINDINGS: Image quality: Diagnostic. Lower chest: Small amount of right pleural effusion. Mild bibasilar dependent atelectasis and scarring is seen. Heart size is normal, no pericardial effusion. Small hiatal hernia. Liver: No contour-deforming mass. Moderate hepatic steatosis. Gallbladder: There is no radiopaque gallstone. Gallbladder wall thickening and pericholecystic inflammatory changes are noted. Biliary tree: No intrahepatic or extrahepatic dilation, accounting for age. Spleen: No splenomegaly. Pancreas: No pancreatic ductal dilation. Adrenals: No adrenal nodule. Kidneys and ureters: No hydronephrosis. No contour-deforming mass. Stomach, bowel and peritoneum: There is wall thickening involving ascending colon and proximal transverse colon adjacent to gallbladder fossa. No evidence of acute appendicitis or diverticulitis. No abscess collection. No free fluid of free air. Lymph nodes: No central or retroperitoneal adenopathy. Vessels: No infrarenal aortic aneurysm. Reproductive organs: Unremarkable. Bladder: Bladder wall thickness is normal, accounting for underdistention. No calcified bladder stones. Pelvic lymph nodes: No adenopathy by size criteria. Bones: No aggressive osseous abnormality. Other: No significant ventral or inguinal hernia. IMPRESSION: 1. Gallbladder wall thickening and pericholecystic inflammatory changes concerning for acute cholecystitis. This is concordant with right upper quadrant ultrasound finding. No radiopaque gallstones are seen. 2. Inflammatory changes involving hepatic flexure and proximal sigmoid colon which may represent reactive inflammatory changes from adjacent gallbladder. Superimposed infectious or inflammatory colitis cannot be entirely excluded. No evidence of acute appendicitis or diverticulitis. No free fluid of free air. No bowel obstruction. 3. Small right pleural effusion. Bibasilar atelectasis. 4. Moderate hepatic steatosis. Reviewed by: Rico Sands MD on 11/26/2024 1:07 PM PDT Dictated by: Chasidy Smith DO <Electronically signed by Chasidy Smith DO> Signed Date/Time #1: 11/27/24 1013 SEPSIS Current Stage of Sepsis: Resolved Possible source of Sepsis: GI tract/intra-abdominal Confirmed Source and Organism (if known) of Sepsis: gallbladder Sepsis Criteria: Recorded Heart Rate greater than 90 bpm, WBC count greater than 10% bands and WBC count greater than 12,000 or less than 4000 FOLLOW UP Follow Up: Dr. Smith 2 weeks TIME SPENT Time Spent in Discharge (Minutes): 45 Discharge Plan Discharge Patient Disposition: 01 Home, Self Care Condition: Stable Medically Cleared Date:: 11/27/24 Prescriptions: New ibuprofen 800 mg tablet 800 mg PO Q8H Qty: 60 0RF acetaminophen 500 mg tablet 1,000 mg PO Q8HR MDD 4000 mg Qty: 120 0RF polyethylene glycol 3350 17 gram/dose powder 17 g PO DAILY Qty: 238 0RF Rx Instructions: use while taking narcotic pain medication oxycodone 5 mg tablet 5 mg PO Q4H PRN (Reason: breakthrough pain) Qty: 10 0RF Rx Instructions: Take with food. Do Not drive while taking medication. gabapentin 300 mg capsule 300 mg PO TID PRN (Reason: postoperative pain) Qty: 90 2RF Continued fexofenadine [[facility]] 180 mg tablet 180 mg PO QDAY Activity Restrictions/Additional Instructions: DIET * You may resume your normal diet if there is no nausea or vomiting. * If nausea or vomiting occurs, don't eat or drink anything for one hour. Then start drinking small amounts of clear liquids. Later, add crackers, gradually building up to your usual diet. ACTIVITY INSTRUCTIONS * No lifting more than 20 pounds for 6 weeks * May shower normally DRESSING CARE * Remove the clear tape and gauze after 48 hours * Leave the Steristrips (white tape) in place - they will fall off on their own in 1-2 weeks * Using supportive garments to reduce surgical site motion will reduce pain DISCHARGE INSTRUCTIONS * Please call the General Surgery Clinic / Dr. Smith's office ([phone]) for any questions or signs of bleeding or infection (redness or drainage at incision, worsening pain/nausea/vomiting/fever). * Go to the Emergency Room after hours for severe symptoms. MEDICATIONS * Use Tylenol (acetaminophen), Motrin (ibuprofen), and Gabapentin on a scheduled basis for the first 3-5 days, then on as "as needed" basis as pain decreases. * Use Oxycodone (a narcotic) for breakthrough pain. Do not drive while taking Oxycodone. * Oxycodone will call cause constipation - drink plenty of water, and use Miralax twice a day as needed. ANESTHESIA PRECAUTIONS * Anesthesia and medications given during surgery remain in your body up to 24 hours. This may slow reaction time and/or decrease coordination. FOR THE NEXT 24 HOURS: * Have a responsible person with you * Avoid any activity that requires you to be alert and coordinated * DO NOT DRIVE a motor vehicle for 24 hours or as long as you are taking opioid pain medication * Do not drink alcoholic beverages * Do not smoke unattended Patient Date Escort Date RN Date Diet: Regular Plan of Treatment: 2 weeks postoperative recovery at home, then return to work on light duty for 4 weeks. Print Language: Azerbaijani Patient Instructions: Surgery Anesthesia After Stand Alone Forms: PCP List Follow-up Care: Chasidy Smith DO [Provider Admit Priv/Credential] - 2 Weeks
--- NOTE | 2024-11-27 14:33 | ANESTHESIA POST OP EVALUATION ---
Anesthesia Post Eval Post Anesthesia Eval Vitals: Last Vital Signs Temp 37.4 C 11/27/24 14:30 Pulse 90 11/27/24 14:30 Resp 17 11/27/24 14:30 BP 125/81 11/27/24 14:30 Pulse Ox 94 11/27/24 14:30 CV Function Including HR & BP: Stable Pain Control: Satisfactory Nausea & Vomiting: Negative Mental Status: Baseline Respiratory Status: Airway Patent Hydration Status: Satisfactory Anesthesia Complications: None
[2024-11-27] MEDS: ACETAMINOPHEN 500 MG TABLET PO SCH (14:59)
[2024-11-27] MEDS: LACTATED RINGERS 1,000 ML IV SCH (16:05)
--- NOTE | 2024-11-27 16:51 | XRAY Report ---
PROCEDURE: FL OR C-Arm Procedure INDICATIONS: IOC cholecystectomy FLUORO TIME: 0.9 TECHNIQUE: Intraoperative fluoroscopy COMPARISON: None. FINDINGS: 3 fluoroscopic spot images submitted, reported under separate procedure report. Limited Images demons trate cholecystectomy with contrast injected into the common bile duct. No gross fluoroscopic spot fi lm evidence of retained stone choledocholithiasis. Fluoroscopic dose is noted as cumulative dose 312.4 mGy, 17.0 Gy.cm2 Fluoroscopy time of 0.9 minutes. IMPRESSION: Intraoperative fluoroscopy as discussed above Reviewed by: Henri Vela MD on 11/27/2024 4:50 PM PDT Approved by: Henri Vela MD on 11/27/2024 4:50 PM PDT Station ID: [id number]
[2024-11-27 17:00] VITALS: BP 113/81; TEMP 97.9; O2SAT 98
== END 2024-11-27 17:20 | disposition home or self-care (01) ==
LOC: MS3 08:04 → ED 08:04 → MS3 17:00
PROVIDERS: ADMIT Surgery; ATTEND Surgery